=== PATIENT | female | born 1995 | race Caucasian/White ===

== ENCOUNTER 2023-03-12 18:06 | Emergency (ER) | payer OTHER ==
[~2023-03-12] VITALS: Ht 165.1 cm; Wt 61.0 kg
[~2023-03-12 18:06] MED LIST: TOPUD
[2023-03-12 18:16] VITALS: BP 117/74; PULSE 76; RESP 18; TEMP 97.9; O2SAT 100
[2023-03-12] MEDS ORDERED: SULF1TAB48 MT (19:42)
[2023-03-12] MEDS ORDERED: IBUP-2029 MT (19:42)
== END 2023-03-12 21:00 | disposition home or self-care (01) ==
LOC: ER 18:06
DX: L03.213 Periorbital cellulitis (principal)
CPT/HCPCS: 99283

== ENCOUNTER 2023-04-01 18:08 | Emergency (ER) | payer OTHER ==
[~2023-04-01] VITALS: Ht 160 cm; Wt 64.0 kg
[~2023-04-01 18:08] MED LIST changes: +IBUP-2029 MT; +SULF1TAB48 MT
[2023-04-01 18:43] VITALS: BP 134/99; PULSE 77; RESP 16; TEMP 98.8; O2SAT 99
== END 2023-04-01 23:43 | disposition left against medical advice (07) ==
LOC: ER 18:08
DX: K14.8 Other diseases of tongue (principal); Z53.21 Procedure and treatment not carried out due to patient leaving prior to being seen by health care provider
CPT/HCPCS: 99281

== ENCOUNTER 2024-12-29 14:25 | Emergency (ER) | payer OTHER ==
[~2024-12-29] VITALS: Ht 170.2 cm; Wt 65.0 kg
[~2024-12-29 14:25] MED LIST changes: +IBUP-1455 MT; -IBUP-2029 MT
[2024-12-29 14:54] VITALS: O2SAT 100
[2024-12-29 16:12] LABS: BASOPHILS % 0.8 % (0.0-2.0); EOSINOPHILS % 0.3 % (0.0-5.0); HEMATOCRIT. 40.1 % (36.0-48.0); HEMOGLOBIN. 13.5 g/dL (12.0-16.0); LYMPHOCYTES % 32.3 % (20.0-50.0); MEAN PLATELET VOLUME 8.8 fl (7.4-10.4); MONOCYTES % 4.8 % (2.0-8.0); NEUTROPHILS % 61.8 % (40.0-76.0); PLATELET 266 x1000/uL (130-400); RED BLOOD CELL COUNT 4.71 mill/uL (4.2-5.4); RED CELL DISTRIBUTION WIDTH 12.8 % (11.6-14.6)
[2024-12-29 16:27] LABS: CREATININE 0.7 mg/dL (0.6-1.0); UREA NITROGEN BLOOD 11 mg/dL (9-23)
[2024-12-29 17:57] VITALS: BP 116/83; PULSE 64; RESP 20; TEMP 37.2; O2SAT 100
== END 2024-12-29 17:58 | disposition home or self-care (01) ==
LOC: ER 14:25
DX: K62.5 Hemorrhage of anus and rectum (principal); Z88.0 Allergy status to penicillin
CPT/HCPCS: 36415; 80048; 85025; 99283